=== PATIENT | male | born 1990 | race Caucasian/White ===

== ENCOUNTER 2017-03-05 15:42 | Emergency (ER) | payer SELFPAY | END 2017-03-05 20:04 | disposition home or self-care (01) | LOC: ER 15:42 | DX: S00.83XA Contusion of other part of head, initial encounter (principal); M54.2 Cervicalgia; M54.9 Dorsalgia, unspecified; V48.0XXA Car driver injured in noncollision transport accident in nontraffic accident, initial encounter; Y92.410 Unspecified street and highway as the place of occurrence of the external cause; F17.210 Nicotine dependence, cigarettes, uncomplicated | CPT/HCPCS: 70450; 70486; 72100; 72125; 96372; 99070; 99284; 99284-25 ==

== ENCOUNTER 2017-05-26 20:49 | Emergency (ER) | payer OTHER | END 2017-05-26 22:12 | disposition home or self-care (01) | LOC: ER 20:49 | DX: H16.133 Photokeratitis, bilateral (principal); W89.8XXA Exposure to other man-made visible and ultraviolet light, initial encounter | CPT/HCPCS: 96372; 99282-25; 99283 ==